=== PATIENT | female | born 1965 | race Caucasian/White ===

== ENCOUNTER 2020-02-06 09:43 | Emergency (ER) | payer SELFPAY ==
[~2020-02-06] VITALS: Ht 154.9 cm; Wt 74.8 kg
[2020-02-06 09:49] VITALS: BP 133/93; Ht 154.9 cm; Wt 74.8 kg
== END 2020-02-06 14:10 | disposition home or self-care (01) ==
LOC: ED 09:43
DX: U07.1 COVID-19 (principal); I10 Essential (primary) hypertension; E11.9 Type 2 diabetes mellitus without complications
CPT/HCPCS: U0003